=== PATIENT | female | born 1980 | race Caucasian/White ===

== ENCOUNTER → 2017-09-09 | Day surgery (SDC) | payer MEDICAID ==
[~2017-09-09] MED LIST: ACETAMINOPHEN 1000 MG/100 ML IVPB; ALBUTEROL 0.083% (NEB) 2.5 MG/3 ML AMP HHN; DEXAMETHASONE 4 MG/ML 1 ML INJ; DIPHENHYDRAMINE 50 MG INJ IV; EPHEDrine SULFATE 50 MG/5 ML SYG IV; FENTAnyl 50 MCG/ML VIAL IV; HYDROmorphONE (0.2 MG/ML) 10ML SYG IV; KETOROLAC 30 MG INJ; KETOROLAC 30 MG INJ IV; LABETALOL HCL 20MG INJ IV; LIDOCAINE 100 MG SYRINGE; METOCLOPRAMIDE 10 MG INJ IV; MIDAZOLAM 1 MG/ML 2 ML INJ IV; ONDANSETRON 4 MG INJ; OXYCODONE/ACETAMINOPHEN (5/325) TAB PO; PROPOFOL 100 ML; ROCURONIUM 50 MG INJ; hydrALAzine 20 MG INJ IV
[2017-09-09] MEDS: BUPIVACAINE 0.25%/EPI (SDV) 30 ML INJ INJ (13:21)
[2017-09-09] MEDS: MEPERIDINE 25 MG INJ IV (14:09)
[2017-09-09] MEDS: ONDANSETRON 4 MG INJ IV (14:09)
[2017-09-09] MEDS: HYDROmorphONE (0.2 MG/ML) 10ML SYG IV (14:37)
== END | disposition home or self-care (01) ==
LOC: SDS 09:17
DX: Z30.2 Encounter for sterilization (principal)
CPT/HCPCS: 58600; 84703; 88302